=== PATIENT | female | born 1970 | race Caucasian/White ===

== ENCOUNTER 2017-01-26 22:56 | Emergency (ER) | payer OTHER ==
[~2017-01-26] VITALS: Ht 172.7 cm; Wt 57.8 kg
[~2017-01-26 22:56] MED LIST: ALBU1AER9 INH; ASPCH81X PO; ASPI-100 PO; HYDR25TA4 PO; LEVO100T7 PO; LSN5 PO; MIRT30TA3 PO
[2017-01-26 23:04] VITALS: TEMP 37.9; Ht 172.7 cm; Wt 57.8 kg
[2017-01-26] MEDS ORDERED: SODIUM CHLORIDE 0.9% 1000ML 1,000 ML IV STA (23:37)
[2017-01-27 00:15] LABS: HEMATOCRIT 32.8 % (37-47); MEAN CELL VOLUME 95.6 fL (80-100); MEAN CORPUSCULAR HEMOGLOBIN 32.1 pg (25-34); MEAN CORPUSCULAR HGB CONC 33.5 g/dl (32-36); MEAN PLATELET VOLUME 9.9 fL (7.4-10.4); PLATELET COUNT 310 K/uL (130-400); RED BLOOD COUNT 3.43 M/uL (4.2-5.4); WHITE BLOOD COUNT 11.96 K/uL (4.8-10.8)
[2017-01-27 00:40] LABS: BUN/CREATININE RATIO 12.3 (10-20); CREATININE 0.78 mg/dl (0.60-1.20); POTASSIUM 2.9 mmol/L (3.5-5.1)
[2017-01-27] MEDS ORDERED: POTASSIUM CHLORIDE 10 MEQ / 100ML WTR IV STA (00:47)
[2017-01-27] MEDS ORDERED: POTASSIUM CHLORIDE 10 MEQ TABCR PO STA (00:47)
[2017-01-27 00:52] LABS: BASO % 0.1 %; BASO ABS # 0.01 K/uL (0-0.2); COMPLETE YES; EOS % 0.1 %; IG% 0.3 %; LYMPH % 9.2 %; MONO % 10.9 %; NEUT % 79.4 %
[2017-01-27 01:07] LABS: LYME DISEASE AB IGG NEG (NEG)
[2017-01-27 01:08] LABS: LYME DISEASE AB IGM NEG (NEG)
[2017-01-27] MEDS ORDERED: CIPROFLOXACIN 500 MG TAB PO STA (01:19)
[2017-01-27 01:29] LABS: URINE APPEARANCE TURBID (CLEAR); URINE BILIRUBIN NEG (NEG); URINE COLOR YELLOW; URINE EPITHELIAL CELL AUTO >30 /lpf (0-5); URINE NITRITE POS (NEG); URINE SPECIFIC GRAVITY 1.015 (1.000-1.030); UROBILINOGEN NEG (NEG)
[2017-01-27 01:41] LABS: MANUAL MICROSCOPIC REQUIRED? NO; REVIEW REQ? NO
[2017-01-27] MEDS ORDERED: CIPR-255 PO (01:44)
[2017-01-27 02:15] VITALS: BP 106/68; PULSE 78; O2SAT 98
--- NOTE | 2017-01-27 02:27 | EMERGENCY ROOM VISIT NOTE ---
History Report prepared by Mariel: Cary Escobar Under the Supervision of: Dr. Matthew Saenz M.D. First contact with patient: 23:31 Chief Complaint: FEVER Stated Complaint: FEVER,ACHES ALL OVER,BURING WHEN URINATING History of Present Illness The patient is a 46 year old female who presents to the Emergency Room with complaints of persistent fever starting 4 days ago. Her symptoms started with dysuria 1 week ago. She also had urinary frequency. Her urinary symptoms resolved and she started having a fever 4 days ago. Her fever was as high as 102.2. She also has body aches. She has vomited several times. She has not been eating well. She denies any rash, hematuria, cough, cold symptoms, or other symptoms. She has a headache which is normal for her as she has a history of migraines. She denies any tick bites. She has a history of asthma, lupus, and hypertension. Source of History: patient Onset: 4 days ago Position: other (global) Symptom Intensity: 102.2 Quality: other (fever) Timing: other (persistent) Associated Symptoms: + vomiting, + urinary symptoms, No cough, No rash Note: Pt reports body aches. Review of Systems See HPI for pertinent positives & negatives. A total of 10 systems reviewed and were otherwise negative. Past Medical & Surgical Medical Problems: (1) Asthma (2) Depression (3) HTN (hypertension) (4) Hypothyroidism (5) Lupus (6) Migraine Surgical Problems: (1) H/O: hysterectomy Family History Diabetes mellitus Hypertension Social History Smoking Status: Never Smoker Alcohol Use: none Drug Use: none Marital Status: Housing Status: lives with family Occupation Status: employed Current/Historical Medications Scheduled Ciprofloxacin Hcl (Cipro), 500 MG PO BID Hydrochlorothiazide (Hctz), 25 MG PO DAILY Levothyroxine Sodium (Levothyroxine Sodium), 100 MG PO DAILY Lisinopril (Lisinopril), 5 MG PO DAILY Mirtazapine (Remeron), 30 MG PO HS Scheduled PRN Albuterol Sulfate (Proair Hfa), 2 PUFFS INH HS PRN for Wheezing Aspirin (Aspirin Chewable), 81 MG PO DAILY PRN for HEADACHE Qosxocj-Wzwu-Jsdbiea-Caff (Pain Relief), 2 TAB PO Q6 PRN for HEADACHE Allergies Coded Allergies: Cephalosporins (Verified Allergy, Unknown, 08/30/14) Codeine (Verified Allergy, Unknown, 08/30/14) Penicillins (Verified Allergy, Unknown, 08/30/14) Sulfa Drugs (Verified Allergy, Unknown, 08/30/14) Sulfamethoxazole (Verified Allergy, Unknown, 08/30/14) Physical Exam Vital Signs Date Time Temp Pulse Resp B/P (MAP) Pulse Ox O2 Delivery O2 Flow Rate FiO2 01/27/17 02:15 78 18 106/68 98 01/26/17 23:04 37.9 100 18 129/87 98 Room Air Physical Exam Constitutional: Vital signs reviewed. Eyes: Pupils are equal round reactive to light. Conjunctiva are noninjected. ENT: Pharynx is clear without erythema or exudate. Mucous membranes are moist. Neck supple without meningeal signs. Respiratory: Clear to auscultation bilaterally. Breath sounds are equal bilaterally. Cardiovascular: Regular rate and rhythm. No rubs or gallops. GI: Soft, nondistended and nontender. Bowel sounds are present. Musculoskeletal: No peripheral edema. No CVA tenderness. Integumentary: No cyanosis. Neurological: The patient is awake and alert. No focal deficits. Psychiatric: Normal affect. Medical Decision & Procedures Laboratory Results 01/27/17 00:00 Red Blood Count 3.43, Mean Corpuscular Volume 95.6, Mean Corpuscular Hemoglobin 32.1, Mean Corpuscular Hemoglobin Concent 33.5, Mean Platelet Volume 9.9, Neutrophils (%) (Auto) 79.4, Lymphocytes (%) (Auto) 9.2, Monocytes (%) (Auto) 10.9, Eosinophils (%) (Auto) 0.1, Basophils (%) (Auto) 0.1, Neutrophils # (Auto ) 9.50, Lymphocytes # (Auto) 1.10, Monocytes # (Auto) 1.30, Eosinophils # (Auto ) 0.01, Basophils # (Auto) 0.01 01/27/17 00:00 Test 01/27/17 00:00 01/27/17 00:03 01/27/17 01:03 White Blood Count 11.96 K/uL (4.8-10.8) Red Blood Count 3.43 M/uL (4.2-5.4) Hemoglobin 11.0 g/dL (12.0-16.0) Hematocrit 32.8 % (37-47) Mean Corpuscular Volume 95.6 fL (80-100) Mean Corpuscular Hemoglobin 32.1 pg (25-34) Mean Corpuscular Hemoglobin Concent 33.5 g/dl (32-36) Platelet Count 310 K/uL (130-400) Mean Platelet Volume 9.9 fL (7.4-10.4) Neutrophils (%) (Auto) 79.4 % Lymphocytes (%) (Auto) 9.2 % Monocytes (%) (Auto) 10.9 % Eosinophils (%) (Auto) 0.1 % Basophils (%) (Auto) 0.1 % Neutrophils # (Auto) 9.50 K/uL (1.4-6.5) Lymphocytes # (Auto) 1.10 K/uL (1.2-3.4) Monocytes # (Auto) 1.30 K/uL (0.11-0.59) Eosinophils # (Auto) 0.01 K/uL (0-0.5) Basophils # (Auto) 0.01 K/uL (0-0.2) RDW Standard Deviation 43.4 fL (36.4-46.3) RDW Coefficient of Variation 12.4 % (11.5-14.5) Immature Granulocyte % (Auto) 0.3 % Immature Granulocyte # (Auto) 0.04 K/uL (0.00-0.02) Red Blood Cell Morphology Unremarkable Anion Gap 10.0 mmol/L (3-11) Est Creatinine Clear Calc Drug Dose 82.2 ml/min Estimated GFR () 105.7 Estimated GFR (Non- 91.2 BUN/Creatinine Ratio 12.3 (10-20) Calcium Level 9.0 mg/dl (8.5-10.1) Total Bilirubin 0.6 mg/dl (0.2-1) Direct Bilirubin 0.1 mg/dl (0-0.2) Aspartate Amino Transf (AST/SGOT) 9 U/L (15-37) Alanine Aminotransferase (ALT/SGPT) 12 U/L (12-78) Alkaline Phosphatase 63 U/L (45-117) Total Protein 7.7 gm/dl (6.4-8.2) Albumin 3.2 gm/dl (3.4-5.0) Lyme Disease IgG Antibody NEG (NEG) Lyme Disease IgM Antibody NEG (NEG) Influenza Type A Antigen Neg for Influ A (NEG) Influenza Type B Antigen Neg for Influ B (NEG) Urine Color YELLOW Urine Appearance TURBID (CLEAR) Urine pH 6.0 (4.5-7.5) Urine Specific [place] 1.015 (1.000-1.030) Urine Protein 2+ (NEG) Urine Glucose (UA) NEG (NEG) Urine Ketones TRACE (NEG) Urine Occult Blood 2+ (NEG) Urine Nitrite POS (NEG) Urine Bilirubin NEG (NEG) Urine Urobilinogen NEG (NEG) Urine Leukocyte Esterase LARGE (NEG) Urine WBC (Auto) >30 /hpf (0-5) Urine RBC (Auto) 10-30 /hpf (0-4) Urine Hyaline Casts (Auto) 5-10 /lpf (0-5) Urine Epithelial Cells (Auto) >30 /lpf (0-5) Urine Bacteria (Auto) 4+ (NEG) Laboratory results as reviewed by me. Medications Administered Medications (Trade) Dose Ordered Sig/Ronnie Route Start Time Stop Time Status Last Admin Dose Admin Sodium Chloride 1,000 ml @ 999 mls/hr Q1H1M STAT IV 01/26/17 23:37 01/27/17 00:37 DC 01/26/17 23:37 999 MLS/HR Potassium Chloride (Kcl 10 Meq / Wtr) 10 meq NOW STAT IV 01/27/17 00:47 01/27/17 00:48 DC 01/27/17 01:02 10 MEQ Potassium Chloride (Klor-Con M10) 40 meq NOW STAT PO 01/27/17 00:47 01/27/17 00:48 DC 01/27/17 01:02 40 MEQ Ciprofloxacin (Cipro Tab) 500 mg NOW STAT PO 01/27/17 01:19 01/27/17 01:20 DC 01/27/17 02:09 500 MG ED Course 2333: The patient was evaluated in room B8. A complete history and physical exam was performed. 2337: NSS 1000 ml @ 999 mls/hr IV. 0047: Potassium Chloride 40 meq PO, Potassium Chloride 10 meq IV. 0117: Upon reevaluation, the patient was resting comfortably. I discussed tonight's findings with her. She verbalized agreement of the treatment plan. She was discharged home. 0119: Ciprofloxacin 500 mg PO. Medical Decision This is a 46-year-old female presents with fever, body aches and urinary symptoms. Differential diagnosis includes UTI, pyelonephritis, viral syndrome, influenza, Lyme disease. I did perform a limited focused review of portions of the patient's old chart on the electronic medical record. The patient has had no recent pertinent visits to this hospital. I did evaluate the patient as noted above. IV access was established. I did treat patient with normal saline IV. I did order and personally review the patient's urinalysis as described above. She has an obvious infection. Given her symptoms I suspect a pyelonephritis despite no CVA tenderness. I did send a urine culture and treated her with Cipro. I did order and review the patient' s blood work as noted in the electronic medical record. She has hypokalemia and was given IV KCl as well as oral supplementation. I did discuss the test results with the patient. She was advised to follow closely with her doctor. She was discharged with a prescription for Cipro for 10 days. Medication Reconcilliation Current Medication List: was personally reviewed by me Blood Pressure Screening Patient's blood pressure: Elevated blood pressure Blood pressure disposition: Referred to PCP Impression Primary Impression: Pyelonephritis Additional Impression: Hypokalemia Scribe Attestation The scribe's documentation has been prepared under my direct and personally reviewed by me in its entirety. I confirm that the note above accurately reflects all work, treatment, procedures, and medical decision making performed by me. Departure Information Dispostion Home / Self-Care Prescriptions Ciprofloxacin Hcl (CIPRO) 500 Mg Tab 500 MG PO BID, #19 TAB Prov: Matthew Saenz M.D. 01/27/17 Referrals Vimal Stewart, D.OAnju (PCP) Forms HOME CARE DOCUMENTATION FORM, IMPORTANT VISIT INFORMATION Patient Instructions Hypokalemia Dc, My [facility], Pyelonephritis Dc Additional Instructions You have been examined and treated today on an emergency basis only. This is not a substitute for, or an effort to provide, complete comprehensive medical care. It is impossible to recognize and treat all injuries or illnesses in a single emergency department visit. It is therefore important that you follow up closely with your physician early next week. Call as soon as possible for an appointment. Return for worsening symptoms or if you develop abdominal or back pain, persistent vomiting, or any other concerning symptoms. Problem Qualifiers
--- NOTE | 2017-01-29 14:42 | Pharmacy Progress Note ---
ED Pharmacist Culture FollowUp Date of Service: Jan 29, 2017. Patient was sent home with a prescription for ciprofloxacin 500mg BID X 10 days , which should cover the E. Coli growing from the patient's urine culture.
== END 2017-01-27 02:16 | disposition home or self-care (01) ==
LOC: C.EDB 22:56
DX: N12 Tubulo-interstitial nephritis, not specified as acute or chronic (principal); E87.6 Hypokalemia; J45.909 Unspecified asthma, uncomplicated; I10 Essential (primary) hypertension; M32.9 Systemic lupus erythematosus, unspecified; F32.9 Major depressive disorder, single episode, unspecified; E03.9 Hypothyroidism, unspecified; Z90.710 Acquired absence of both cervix and uterus; Z83.3 Family history of diabetes mellitus; Z82.49 Family history of ischemic heart disease and other diseases of the circulatory system; Z79.899 Other long term (current) drug therapy

== ENCOUNTER 2018-07-16 14:21 | Observation (INO) ==
[2018-07-16] MEDS ORDERED: ASPIRIN CHEW 324 MG PO STA (16:08)
--- NOTE | 2018-07-16 16:27 | Emergency Department Note ---
Entered by Vu Castillo acting as a scribe for History of Present Illness General Chief complaint: Shortness of Breath/Dyspnea Stated complaint: SHORTNESS OF BREATH,DULL PAIN RT SIDE OF CHEST Time Seen by Provider: 07/16/18 15:57 Source: patient and family History of Present Illness Provider complaint: Shortness of breath Onset (ago): day(s) 4 Location: chest Maximum Pain Intensity: 6 Quality: + other (heaviness) Exacerbated By: + movement Associated symptoms: + denies other symptoms (abd pain, swelling in legs, bleeding in stool, burping/reflux, and calf pain), + chest pain (right sided) and + cough; no fever/chills The patient is a 47 year old female who presents to the Emergency Room with complaints of shortness of breath that began Sunday. The patient notes she was at work prior to arrival and noticed her shortness of breath began to worsen as the day went on forcing her to stop at time to catch her breath. She describes the shortness of breath as a heaviness and notes it has been constant for the past 4 days. The shortness of breath began to worsen today which prompted her to come to the Emergency Room. She rates her overall discomfort as a 6/10. She notes she has the heaviness in her chest currently. The patient adds that she had an EKG done at work and presents to the ED with it. The patient adds that she has a history of asthma, but notes that she usually does not get heaviness. The patient also complains of a cough, right sided chest pain. The patient denies fevers, abdominal pain, bleeding in stool, swelling in legs, burping/ reflux, any recent travel, and calf pain. The patient denies a history of heart disease and clotting disorders. She adds that she has hypertension and Lupus. Home Medications Home Medications Medication Instructions Recorded Confirmed Type albuterol sulfate [ProAir HFA] 2 puff INHALATION DIRECTED PRN 07/16/18 History aspirin 81 mg PO DAILY 07/16/18 07/16/18 History ferrous sulfate 325 mg PO DAILY 07/16/18 07/16/18 History fexofenadine [Debra Allergy] 180 mg PO DAILY 07/16/18 07/16/18 History hydrochlorothiazide 12.5 mg PO DAILY 07/16/18 07/16/18 History levothyroxine 88 mcg PO QAM 07/16/18 07/16/18 History lisinopril 10 mg PO DAILY 07/16/18 07/16/18 History mirtazapine 30 mg PO HS 07/16/18 07/16/18 History potassium chloride 10 meq PO DAILY 07/16/18 07/16/18 History Allergies Allergy/AdvReac Type Severity Reaction Status Date / Time cephalexin [From Keflex] Allergy Unknown Unknown Verified 07/16/18 17:29 Cephalosporins Allergy Unknown Unknown Verified 07/16/18 17:29 codeine Allergy Unknown Unknown Verified 07/16/18 17:29 Penicillins Allergy Unknown Unknown Verified 07/16/18 17:29 Sulfa (Sulfonamide Allergy Unknown Unknown Verified 07/16/18 17:29 Antibiotics) sulfamethoxazole Allergy Unknown Unknown Verified 07/16/18 17:29 Past Med/Surg History Medical History Hypertension Lupus Social History Current Living Situation: Spouse Feels Safe at Home: Yes Safety Concerns: Feels Safe At This Time Smoking Status: Never smoker Hx Alcohol Use: Yes Hx Substance Use: No Beliefs That Will Affect Care: None Preferred Language: Jordanian Communication Ability: Effective Research Associate Quality Control Qc Required: No Review of Systems See HPI for pertinent positives & negatives. and A total of 10 systems reviewed and were otherwise negative Physical Exam Vital Signs Vital Signs - 24 hr 07/16/18 14:33 07/16/18 16:18 07/16/18 16:21 Temperature 36.9 C Temperature Source Oral Sepsis Recent Fever Within 48 Hours No Sepsis New/Unexplained Change in Mental Status No Sepsis Action Taken by Nursing No Action Required Pulse Rate 81 69 Pulse Rate [Left Radial] Pulse Rate from SpO2 Sensor 70 Pulse Rhythm [Left Radial] Pulse Strength [Left Radial] Respiratory Rate 18 16 Respiratory Effort / Characteristics Non-Labored Spontaneous Respiratory Depth Normal Respiratory Pattern Blood Pressure 147/93 H 137/94 Blood Pressure [Left Arm] Blood Pressure Mean 111 108 Blood Pressure Mean [Left Arm] Blood Pressure Position Sitting Blood Pressure Position [Left Arm] Pulse Oximetry 98 100 97 Oxygen Delivery Method Room Air Room Air Oxygen Flow Rate 97 07/16/18 16:32 07/16/18 16:34 07/16/18 16:40 Temperature Temperature Source Sepsis Recent Fever Within 48 Hours Sepsis New/Unexplained Change in Mental Status Sepsis Action Taken by Nursing Pulse Rate 68 66 70 Pulse Rate [Left Radial] Pulse Rate from SpO2 Sensor 68 68 70 Pulse Rhythm [Left Radial] Pulse Strength [Left Radial] Respiratory Rate 18 16 16 Respiratory Effort / Characteristics Respiratory Depth Respiratory Pattern Blood Pressure 139/100 Blood Pressure [Left Arm] Blood Pressure Mean 113 Blood Pressure Mean [Left Arm] Blood Pressure Position Blood Pressure Position [Left Arm] Pulse Oximetry 100 98 97 Oxygen Delivery Method Oxygen Flow Rate 07/16/18 16:50 07/16/18 17:00 07/16/18 17:01 Temperature Temperature Source Sepsis Recent Fever Within 48 Hours Sepsis New/Unexplained Change in Mental Status Sepsis Action Taken by Nursing Pulse Rate 70 68 69 Pulse Rate [Left Radial] Pulse Rate from SpO2 Sensor 70 68 69 Pulse Rhythm [Left Radial] Pulse Strength [Left Radial] Respiratory Rate 16 16 15 Respiratory Effort / Characteristics Respiratory Depth Respiratory Pattern Blood Pressure 124/94 Blood Pressure [Left Arm] Blood Pressure Mean 104 Blood Pressure Mean [Left Arm] Blood Pressure Position Blood Pressure Position [Left Arm] Pulse Oximetry 99 98 98 Oxygen Delivery Method Oxygen Flow Rate 07/16/18 17:10 07/16/18 17:20 07/16/18 17:30 Temperature Temperature Source Sepsis Recent Fever Within 48 Hours Sepsis New/Unexplained Change in Mental Status Sepsis Action Taken by Nursing Pulse Rate 73 66 67 Pulse Rate [Left Radial] Pulse Rate from SpO2 Sensor 72 67 68 Pulse Rhythm [Left Radial] Pulse Strength [Left Radial] Respiratory Rate 16 15 16 Respiratory Effort / Characteristics Respiratory Depth Respiratory Pattern Blood Pressure 123/87 Blood Pressure [Left Arm] Blood Pressure Mean 99 Blood Pressure Mean [Left Arm] Blood Pressure Position Blood Pressure Position [Left Arm] Pulse Oximetry 97 99 96 Oxygen Delivery Method Oxygen Flow Rate 07/16/18 17:31 07/16/18 17:40 07/16/18 17:50 Temperature Temperature Source Sepsis Recent Fever Within 48 Hours Sepsis New/Unexplained Change in Mental Status Sepsis Action Taken by Nursing Pulse Rate 69 68 68 Pulse Rate [Left Radial] Pulse Rate from SpO2 Sensor 69 66 Pulse Rhythm [Left Radial] Pulse Strength [Left Radial] Respiratory Rate 17 17 16 Respiratory Effort / Characteristics Respiratory Depth Respiratory Pattern Blood Pressure Blood Pressure [Left Arm] Blood Pressure Mean Blood Pressure Mean [Left Arm] Blood Pressure Position Blood Pressure Position [Left Arm] Pulse Oximetry 98 91 Oxygen Delivery Method Oxygen Flow Rate 07/16/18 18:00 07/16/18 18:01 07/16/18 18:10 Temperature Temperature Source Sepsis Recent Fever Within 48 Hours Sepsis New/Unexplained Change in Mental Status Sepsis Action Taken by Nursing Pulse Rate 65 70 68 Pulse Rate [Left Radial] Pulse Rate from SpO2 Sensor 65 71 69 Pulse Rhythm [Left Radial] Pulse Strength [Left Radial] Respiratory Rate 23 17 18 Respiratory Effort / Characteristics Respiratory Depth Respiratory Pattern Blood Pressure 113/87 Blood Pressure [Left Arm] Blood Pressure Mean 95 Blood Pressure Mean [Left Arm] Blood Pressure Position Blood Pressure Position [Left Arm] Pulse Oximetry 98 98 97 Oxygen Delivery Method Oxygen Flow Rate 07/16/18 18:20 07/16/18 18:30 07/16/18 18:31 Temperature Temperature Source Sepsis Recent Fever Within 48 Hours Sepsis New/Unexplained Change in Mental Status Sepsis Action Taken by Nursing Pulse Rate 67 67 69 Pulse Rate [Left Radial] Pulse Rate from SpO2 Sensor 67 69 Pulse Rhythm [Left Radial] Pulse Strength [Left Radial] Respiratory Rate 12 17 13 Respiratory Effort / Characteristics Respiratory Depth Respiratory Pattern Blood Pressure 122/83 Blood Pressure [Left Arm] Blood Pressure Mean 96 Blood Pressure Mean [Left Arm] Blood Pressure Position Blood Pressure Position [Left Arm] Pulse Oximetry 98 98 Oxygen Delivery Method Oxygen Flow Rate 07/16/18 18:40 07/16/18 18:50 07/16/18 19:00 Temperature Temperature Source Sepsis Recent Fever Within 48 Hours Sepsis New/Unexplained Change in Mental Status Sepsis Action Taken by Nursing Pulse Rate 68 66 66 Pulse Rate [Left Radial] Pulse Rate from SpO2 Sensor 68 66 66 Pulse Rhythm [Left Radial] Pulse Strength [Left Radial] Respiratory Rate 20 15 19 Respiratory Effort / Characteristics Respiratory Depth Respiratory Pattern Blood Pressure 119/81 Blood Pressure [Left Arm] Blood Pressure Mean 93 Blood Pressure Mean [Left Arm] Blood Pressure Position Blood Pressure Position [Left Arm] Pulse Oximetry 96 98 95 Oxygen Delivery Method Oxygen Flow Rate 07/16/18 19:01 07/16/18 19:10 07/16/18 19:20 Temperature Temperature Source Sepsis Recent Fever Within 48 Hours Sepsis New/Unexplained Change in Mental Status Sepsis Action Taken by Nursing Pulse Rate 67 65 70 Pulse Rate [Left Radial] Pulse Rate from SpO2 Sensor 64 64 69 Pulse Rhythm [Left Radial] Pulse Strength [Left Radial] Respiratory Rate 15 17 19 Respiratory Effort / Characteristics Respiratory Depth Respiratory Pattern Blood Pressure Blood Pressure [Left Arm] Blood Pressure Mean Blood Pressure Mean [Left Arm] Blood Pressure Position Blood Pressure Position [Left Arm] Pulse Oximetry 97 100 95 Oxygen Delivery Method Oxygen Flow Rate 07/16/18 19:30 07/16/18 19:31 07/16/18 19:40 Temperature Temperature Source Sepsis Recent Fever Within 48 Hours Sepsis New/Unexplained Change in Mental Status Sepsis Action Taken by Nursing Pulse Rate 62 62 72 Pulse Rate [Left Radial] Pulse Rate from SpO2 Sensor 62 62 69 Pulse Rhythm [Left Radial] Pulse Strength [Left Radial] Respiratory Rate 13 16 16 Respiratory Effort / Characteristics Respiratory Depth Respiratory Pattern Blood Pressure 139/98 Blood Pressure [Left Arm] Blood Pressure Mean 111 Blood Pressure Mean [Left Arm] Blood Pressure Position Blood Pressure Position [Left Arm] Pulse Oximetry 98 98 98 Oxygen Delivery Method Oxygen Flow Rate 07/16/18 19:50 07/16/18 20:00 07/16/18 20:01 Temperature Temperature Source Sepsis Recent Fever Within 48 Hours Sepsis New/Unexplained Change in Mental Status Sepsis Action Taken by Nursing Pulse Rate 67 68 67 Pulse Rate [Left Radial] Pulse Rate from SpO2 Sensor 67 67 68 Pulse Rhythm [Left Radial] Pulse Strength [Left Radial] Respiratory Rate 14 17 18 Respiratory Effort / Characteristics Respiratory Depth Respiratory Pattern Blood Pressure 156/126 H 149/90 H Blood Pressure [Left Arm] Blood Pressure Mean 136 109 Blood Pressure Mean [Left Arm] Blood Pressure Position Blood Pressure Position [Left Arm] Pulse Oximetry 97 97 98 Oxygen Delivery Method Oxygen Flow Rate 07/16/18 20:02 07/16/18 20:10 07/16/18 20:20 Temperature Temperature Source Sepsis Recent Fever Within 48 Hours Sepsis New/Unexplained Change in Mental Status Sepsis Action Taken by Nursing Pulse Rate 65 73 66 Pulse Rate [Left Radial] Pulse Rate from SpO2 Sensor 65 72 68 Pulse Rhythm [Left Radial] Pulse Strength [Left Radial] Respiratory Rate 20 17 18 Respiratory Effort / Characteristics Respiratory Depth Respiratory Pattern Blood Pressure Blood Pressure [Left Arm] Blood Pressure Mean Blood Pressure Mean [Left Arm] Blood Pressure Position Blood Pressure Position [Left Arm] Pulse Oximetry 97 97 97 Oxygen Delivery Method Oxygen Flow Rate 07/16/18 20:30 07/16/18 20:31 07/16/18 20:40 Temperature Temperature Source Sepsis Recent Fever Within 48 Hours Sepsis New/Unexplained Change in Mental Status Sepsis Action Taken by Nursing Pulse Rate 69 66 64 Pulse Rate [Left Radial] Pulse Rate from SpO2 Sensor 70 67 66 Pulse Rhythm [Left Radial] Pulse Strength [Left Radial] Respiratory Rate 14 16 14 Respiratory Effort / Characteristics Respiratory Depth Respiratory Pattern Blood Pressure 118/81 Blood Pressure [Left Arm] Blood Pressure Mean 93 Blood Pressure Mean [Left Arm] Blood Pressure Position Blood Pressure Position [Left Arm] Pulse Oximetry 97 96 97 Oxygen Delivery Method Oxygen Flow Rate 07/16/18 21:20 07/16/18 23:08 07/16/18 23:20 Temperature 36.6 C 36.6 C Temperature Source Oral Oral Sepsis Recent Fever Within 48 Hours Sepsis New/Unexplained Change in Mental Status Sepsis Action Taken by Nursing Pulse Rate 80 Pulse Rate [Left Radial] 74 72 Pulse Rate from SpO2 Sensor Pulse Rhythm [Left Radial] Regular Pulse Strength [Left Radial] Normal Respiratory Rate 18 20 Respiratory Effort / Characteristics Non-Labored Spontaneous Respiratory Depth Normal Respiratory Pattern Regular Blood Pressure Blood Pressure [Left Arm] 142/94 H 122/83 Blood Pressure Mean Blood Pressure Mean [Left Arm] 110 96 Blood Pressure Position Blood Pressure Position [Left Arm] Sitting Left Lateral Pulse Oximetry 96 96 Oxygen Delivery Method Room Air Room Air Oxygen Flow Rate General: Non-ill appearing middle-aged female in no acute distress. HEENT: Normal cephalic atraumatic. Pupils are equal round and reactive to light. Extraocular movements are intact. Oropharynx is pink with moist mucous membranes. No swelling of the mouth lips or tongue. Neck: Supple with a midline trachea. No meningeal signs or stiffness, no JVD or bruits. No Stridor. Chest: Clear to auscultation bilaterally. No wheezes or rhonchi. No increased work of breathing. Heart: regular rate and rhythm. Abdomen: Soft nontender, nondistended without rebound guarding or rigidity. Extremities: No cyanosis clubbing or edema. No calf tenderness or assymetry Spine/Back. Non tender to palpation. No CVA tenderness Skin: Good turgor without rashes. Neurologic exam: Cranial nerves two through 12 are intact. Motor and sensation are intact and symmetrical throughout. Course 160: Past medical records reviewed. The patient was evaluated in room B05, and a complete history and physical examination were performed. 1748: I updated the patient. She is doing well and I ordered another EKG and Trop. 1939: I reviewed the patient's case with Dr. Rome Hospitalist. He will evaluate the patient for further management. Consultations Consultation #1: [id number]: I reviewed the patient's case with Dr. Funes Hospitalist. He will evaluate the patient for further management. Time: 19:40 Administered Medications Potassium Chloride/Sodium Chloride (Normal Saline W/20 Meq Kcl) 20 meq in 1, 000 mls @ 50 mls/hr IV .Q20H LAURITA Stop: 08/16/18 00:00 Last Admin: 07/16/18 23:49 Dose: 50 mls/hr Mirtazapine (Remeron) 30 mg PO HS LAURITA Stop: 08/15/18 21:13 Last Admin: 07/16/18 21:58 Dose: 30 mg Discontinued Medications Aspirin (Aspirin) 324 mg PO NOW STA Stop: 07/16/18 16:09 Last Admin: 07/16/18 16:19 Dose: 324 mg Medical Decision Making Differential Diagnosis Differential Diagnosis includes: acute coronary syndrome, arrhythmia, PE, GERD, Electrolyte or metabolic abnormality Medical Records Attestation: I reviewed the patient's medical records. Home Medications Current Medication List: was personally reviewed by me Laboratory Data Attestation: I reviewed the patient's lab results. Result diagrams: 07/16/18 16:32 07/16/18 16:32 Lab Results 07/16/18 07/16/18 07/16/18 Range/Units 16:32 16:32 16:32 WBC 6.35 (4.8-10.8) K/uL RBC 3.85 L (4.2-5.4) M/uL Hgb 12.4 (12.0-16.0) g/dL Hct 36.6 L (37-47) % MCV 95.1 (80-100) fL MCH 32.2 (25-34) pg MCHC 33.9 (32-36) g/dL RDW Std Deviation 42.9 (36.4-46.3) fL RDW Coeff of Jordi 12.4 (11.5-14.5) % Plt Count 317 (130-400) K/uL MPV 9.9 (7.4-10.4) fL Immature Gran % (Auto) 0.2 % Neut % (Auto) 68.4 % Lymph % (Auto) 22.5 % [place] % (Auto) 7.1 % Eos % (Auto) 1.6 % Baso % (Auto) 0.2 % Immature Gran # (Auto) 0.01 (0.00-0.02) K/uL Neut # (Auto) 4.35 (1.4-6.5) K/uL Lymph # (Auto) 1.43 (1.2-3.4) K/uL [place] # (Auto) 0.45 (0.11-0.59) K/uL Eos # (Auto) 0.10 (0-0.5) K/uL Baso # (Auto) 0.01 (0-0.2) K/uL APTT (21.0-31.0) Seconds PTT Ratio D-Dimer < 190 (0-500) ug/L FEU Sodium 137 (136-145) mmol/L Potassium 3.9 (3.5-5.1) mmol/L Chloride 104 (98-107) mmol/L Carbon Dioxide 27 (21-32) mmol/L Anion Gap 6.0 (3-11) BUN 18 (7-18) mg/dl Creatinine 0.76 (0.6-1.2) mg/dl Est Cr Clr Drug Dosing 91.0 ml/min Est GFR ( Amer) 108.3 Est GFR (Non-Af Amer) 93.4 BUN/Creatinine Ratio 23.1 H (10-20) Glucose 95 (70-99) mg/dl Calcium 9.6 (8.5-10.1) mg/dl Magnesium (1.8-2.4) mg/dl Total Bilirubin 0.2 (0.2-1) mg/dl AST 19 (15-37) U/L ALT 20 (12-78) U/L Alkaline Phosphatase 66 (45-117) U/L POC Troponin I (0-0.045) ng/ml Total Protein 8.0 (6.4-8.2) gm/dl Albumin 4.0 (3.4-5.0) gm/dl Globulin 4.0 (2.5-4.0) gm/dl Albumin/Globulin Ratio 1.0 (0.9-2) Lipase 209 (73-393) U/L 07/16/18 07/16/18 07/16/18 Range/Units 16:32 16:32 16:40 WBC (4.8-10.8) K/uL RBC (4.2-5.4) M/uL Hgb (12.0-16.0) g/dL Hct (37-47) % MCV (80-100) fL MCH (25-34) pg MCHC (32-36) g/dL RDW Std Deviation (36.4-46.3) fL RDW Coeff of Jordi (11.5-14.5) % Plt Count (130-400) K/uL MPV (7.4-10.4) fL Immature Gran % (Auto) % Neut % (Auto) % Lymph % (Auto) % [place] % (Auto) % Eos % (Auto) % Baso % (Auto) % Immature Gran # (Auto) (0.00-0.02) K/uL Neut # (Auto) (1.4-6.5) K/uL Lymph # (Auto) (1.2-3.4) K/uL [place] # (Auto) (0.11-0.59) K/uL Eos # (Auto) (0-0.5) K/uL Baso # (Auto) (0-0.2) K/uL APTT 25.4 (21.0-31.0) Seconds PTT Ratio 0.9 D-Dimer (0-500) ug/L FEU Sodium (136-145) mmol/L Potassium (3.5-5.1) mmol/L Chloride (98-107) mmol/L Carbon Dioxide (21-32) mmol/L Anion Gap (3-11) BUN (7-18) mg/dl Creatinine (0.6-1.2) mg/dl Est Cr Clr Drug Dosing ml/min Est GFR ( Amer) Est GFR (Non-Af Amer) BUN/Creatinine Ratio (10-20) Glucose (70-99) mg/dl Calcium (8.5-10.1) mg/dl Magnesium 2.2 (1.8-2.4) mg/dl Total Bilirubin (0.2-1) mg/dl AST (15-37) U/L ALT (12-78) U/L Alkaline Phosphatase (45-117) U/L POC Troponin I < 0.03 (0-0.045) ng/ml Total Protein (6.4-8.2) gm/dl Albumin (3.4-5.0) gm/dl Globulin (2.5-4.0) gm/dl Albumin/Globulin Ratio (0.9-2) Lipase (73-393) U/L 07/16/18 Range/Units 18:26 WBC (4.8-10.8) K/uL RBC (4.2-5.4) M/uL Hgb (12.0-16.0) g/dL Hct (37-47) % MCV (80-100) fL MCH (25-34) pg MCHC (32-36) g/dL RDW Std Deviation (36.4-46.3) fL RDW Coeff of Jordi (11.5-14.5) % Plt Count (130-400) K/uL MPV (7.4-10.4) fL Immature Gran % (Auto) % Neut % (Auto) % Lymph % (Auto) % [place] % (Auto) % Eos % (Auto) % Baso % (Auto) % Immature Gran # (Auto) (0.00-0.02) K/uL Neut # (Auto) (1.4-6.5) K/uL Lymph # (Auto) (1.2-3.4) K/uL [place] # (Auto) (0.11-0.59) K/uL Eos # (Auto) (0-0.5) K/uL Baso # (Auto) (0-0.2) K/uL APTT (21.0-31.0) Seconds PTT Ratio D-Dimer (0-500) ug/L FEU Sodium (136-145) mmol/L Potassium (3.5-5.1) mmol/L Chloride (98-107) mmol/L Carbon Dioxide (21-32) mmol/L Anion Gap (3-11) BUN (7-18) mg/dl Creatinine (0.6-1.2) mg/dl Est Cr Clr Drug Dosing ml/min Est GFR ( Amer) Est GFR (Non-Af Amer) BUN/Creatinine Ratio (10-20) Glucose (70-99) mg/dl Calcium (8.5-10.1) mg/dl Magnesium (1.8-2.4) mg/dl Total Bilirubin (0.2-1) mg/dl AST (15-37) U/L ALT (12-78) U/L Alkaline Phosphatase (45-117) U/L POC Troponin I < 0.03 (0-0.045) ng/ml Total Protein (6.4-8.2) gm/dl Albumin (3.4-5.0) gm/dl Globulin (2.5-4.0) gm/dl Albumin/Globulin Ratio (0.9-2) Lipase (73-393) U/L Imaging Data Radiologist's Impression: Radiology results as stated below per my review and the radiologist's interpretation: XR chest 1V portable CLINICAL HISTORY: Atypical chest pain COMPARISON STUDY: No previous studies for comparison. FINDINGS: The heart is at the upper limits of normal in size. There is no focal pulmonary consolidation. There is no failure. There are no pleural effusions.[ IMPRESSION: No active disease in the chest. Electronically signed by: Vipin Hickey M.D. 07/16/2018 4:27 PM ECG Data Indication: SOB/dyspnea Rate (beats per minute): 69 Rhythm: normal sinus Findings: + other (nonspecific ST changes ); no PAC, no PVC and no ectopy Comparison ECG Date: from (12/07/13) Change: the following changes noted (Anterior T waves have improved) Additional Comments: EKG done prior to arrival (at work): Nonspecific ST and T wave changes Repeat EKG: Normal sinus rate of 69 bpm, nonspecific ST abnormality with repolarization, no ischemic changes Blood Pressure Blood Pressure Findings: Elevated blood pressure Blood Pressure Disposition: further management by hospitalist BHARGAVI Narrative This patient comes in as described above. She was placed in room B5. She complains of shortness of breath. she noticed the last day or so. Over the weekend, she has been having some chest heaviness which has been consistent and present the whole time and has never gone away. She is comfortable at present and looks well. She has a normal exam. IV access established. she takes a baby aspirin a day and was given adult 324 mg here. Chest x-ray, EKG, and multiple blood testing was obtained including: cardiac biomarkers and d-dimer. She was reassessed frequently. Her EKGs are unchanged between the first and second however they do have some nonspecific ST/T wave abnormalities which were also present on previous EKG. Troponin x2 was negative. D-dimer is within normal limits and a low pretest probability study makes PE highly unlikely. Chest x-ray was unremarkable. She has nothing to suggest infection or sepsis. She is not anemic. She has no acute electrolyte or metabolic abnormalities. Her workup thus far is unremarkable I am concerned that her symptoms are exertional and I do think she needs to be observed/admitted for further cardiac workup to rule out an acute coronary syndrome. She has never had a extensive cardiac workup done before she tells me. I did consult the hospitalist to see her in the ER for these measures. Impression & Plan Chest pain, precordial, SOB (shortness of breath) Discharge Plan Visit Data *Final* Discharge Date/Time: 07/16/18 20:52 Chief Complaint: Shortness of Breath/Dyspnea Stated Complaint: SHORTNESS OF BREATH,DULL PAIN RT SIDE OF CHEST ED Provider: Paul Turner Discharge Problem: Chest pain, precordial, SOB (shortness of breath) Patient Disposition: Admitted As Inpatient Discharge Instructions Interventions: ED Discharge Assessment Last Done: 07/16/18 20:52 The scribe's documentation has been prepared under my direction and personally reviewed by me in its entirety. I confirm that the note above accurately reflects all work, treatment, procedures, and medical decision making performed by me.
[2018-07-16 16:48] LABS: Basophils # (auto) 0.01 K/uL (0-0.2); Basophils % (auto) 0.2 %; Eosinophils % (auto) 1.6 %; Hematocrit (blood only) 36.6 % (37-47); Hemoglobin 12.4 g/dL (12.0-16.0); Immature Granulocytes # (auto) 0.01 K/uL (0.00-0.02); Immature Granulocytes % (auto) 0.2 %; Lymphocytes # (auto) 1.43 K/uL (1.2-3.4); Lymphocytes % (auto) 22.5 %; Mean Corpuscular Hgb Conc 33.9 g/dL (32-36); Mean Corpuscular Volume 95.1 fL (80-100); Mean Platelet Volume 9.9 fL (7.4-10.4); Monocytes # (auto) 0.45 K/uL (0.11-0.59); Monocytes % (auto) 7.1 %; Neutrophils # (auto) 4.35 K/uL (1.4-6.5); Neutrophils % (auto) 68.4 %; Platelet Count 317 K/uL (130-400); RDW Coefficient of Variation 12.4 % (11.5-14.5); RDW Standard Deviation 42.9 fL (36.4-46.3); Red Blood Count 3.85 M/uL (4.2-5.4); White Blood Count 6.35 K/uL (4.8-10.8)
[2018-07-16 17:07] LABS: D Dimer < 190 ug/L FEU (0-500)
[2018-07-16 17:10] LABS: BUN Creatinine Ratio 23.1 (10-20); Calcium 9.6 mg/dl (8.5-10.1); Est GFR (African American) 108.3; Est GFR (Non-African American) 93.4; Potassium 3.9 mmol/L (3.5-5.1)
[2018-07-16 17:13] LABS: Bilirubin,Total 0.2 mg/dl (0.2-1)
[2018-07-16 19:58] LABS: Partial Thromboplastin Ratio 0.9; Partial Thromboplastin Time 25.4 Seconds (21.0-31.0)
--- NOTE | 2018-07-16 20:07 | History & Physical Report ---
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 if a.m. troponin negative DVT prophylaxis. Lovenox subcu Full code History of Present Illness Chief Complaint: Chest pain Primary Care Provider: Vimal Stewart History obtained from patient, family, and records. Medical history significant for hypertension, SLE, chronic anemia baseline hemoglobin of 11, mood disorder, asthma. 4 days history of substernal heaviness nonradiating usually related to exertion, relieved by rest. Some shortness of breath, no cough symptoms., No weight gain. Patient had relief of chest pain at the ER after be given aspirin. 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 Allergies Allergy/AdvReac Type Severity Reaction Status Date / Time cephalexin [From Keflex] Allergy Unknown Unknown Verified 07/16/18 17:29 Cephalosporins Allergy Unknown Unknown Verified 07/16/18 17:29 codeine Allergy Unknown Unknown Verified 07/16/18 17:29 Penicillins Allergy Unknown Unknown Verified 07/16/18 17:29 Sulfa (Sulfonamide Allergy Unknown Unknown Verified 07/16/18 17:29 Antibiotics) sulfamethoxazole Allergy Unknown Unknown Verified 07/16/18 17:29 Home Medications Home Medications Medication Instructions Recorded Confirmed Type albuterol sulfate [ProAir HFA] 2 puff INHALATION DIRECTED PRN 07/16/18 07/16/18 History aspirin 81 mg PO DAILY 07/16/18 07/16/18 History ferrous sulfate 325 mg PO DAILY 07/16/18 07/16/18 History fexofenadine [Debra Allergy] 180 mg PO DAILY 07/16/18 07/16/18 History hydrochlorothiazide 12.5 mg PO DAILY 07/16/18 07/16/18 History levothyroxine 88 mcg PO QAM 07/16/18 07/16/18 History lisinopril 10 mg PO DAILY 07/16/18 07/16/18 History mirtazapine 30 mg PO HS 07/16/18 07/16/18 History potassium chloride 10 meq PO DAILY 07/16/18 07/16/18 History Past Med/Surg History Medical History Hypertension Lupus Social History Feels Safe at Home: Yes Smoking Status: Never smoker Preferred Language: Panamanian Review of Systems As per HPI, all 10 systems reviewed, all other ROS negative Physical Exam Vital Signs (Past 24 Hours): Last Vital Signs Temp 36.9 C 07/16/18 14:33 Pulse 67 07/16/18 19:50 Resp 14 07/16/18 19:50 BP 139/98 07/16/18 19:30 Pulse Ox 97 07/16/18 19:50 Physical Exam: GENERAL: Comfortable, slightly anxious, no respiratory distress SKIN: Pallor, warm HEENT: Pale palpebral conjunctivae, no ptosis, dry buccal mucosa NECK : Supple, no tenderness CHEST : CTA, no tenderness HEART : RRR, no obvious murmurs ABDOMEN: Some distention, nontender EXTREMITIES : No LE swelling/tenderness, no other conspicuous deformities noted NEUROLOGIC : Coherent, no facial asymmetry, no other gross focality Results & Data Laboratory Results Laboratory Results WBC 6.35 K/uL (4.8-10.8) 07/16/18 16:32 RBC 3.85 M/uL (4.2-5.4) L 07/16/18 16:32 Hgb 12.4 g/dL (12.0-16.0) 07/16/18 16:32 Hct 36.6 % (37-47) L 07/16/18 16:32 MCV 95.1 fL (80-100) 07/16/18 16:32 MCH 32.2 pg (25-34) 07/16/18 16:32 MCHC 33.9 g/dL (32-36) 07/16/18 16:32 RDW Std Deviation 42.9 fL (36.4-46.3) 07/16/18 16:32 RDW Coeff of Jordi 12.4 % (11.5-14.5) 07/16/18 16:32 Plt Count 317 K/uL (130-400) 07/16/18 16:32 MPV 9.9 fL (7.4-10.4) 07/16/18 16:32 Immature Gran % (Auto) 0.2 % 07/16/18 16:32 Neut % (Auto) 68.4 % 07/16/18 16:32 Lymph % (Auto) 22.5 % 07/16/18 16:32 Floyd % (Auto) 7.1 % 07/16/18 16:32 Eos % (Auto) 1.6 % 07/16/18 16:32 Baso % (Auto) 0.2 % 07/16/18 16:32 Immature Gran # (Auto) 0.01 K/uL (0.00-0.02) 07/16/18 16:32 Neut # (Auto) 4.35 K/uL (1.4-6.5) 07/16/18 16:32 Lymph # (Auto) 1.43 K/uL (1.2-3.4) 07/16/18 16:32 Floyd # (Auto) 0.45 K/uL (0.11-0.59) 07/16/18 16:32 Eos # (Auto) 0.10 K/uL (0-0.5) 07/16/18 16:32 Baso # (Auto) 0.01 K/uL (0-0.2) 07/16/18 16:32 APTT 25.4 Seconds (21.0-31.0) 07/16/18 16:32 PTT Ratio 0.9 07/16/18 16:32 D-Dimer < 190 ug/L FEU (0-500) 07/16/18 16:32 Sodium 137 mmol/L (136-145) 07/16/18 16:32 Potassium 3.9 mmol/L (3.5-5.1) 07/16/18 16:32 Chloride 104 mmol/L (98-107) 07/16/18 16:32 Carbon Dioxide 27 mmol/L (21-32) 07/16/18 16:32 Anion Gap 6.0 (3-11) 07/16/18 16:32 BUN 18 mg/dl (7-18) 07/16/18 16:32 Creatinine 0.76 mg/dl (0.6-1.2) 07/16/18 16:32 Est Cr Clr Drug Dosing 91.0 ml/min 07/16/18 16:32 Est GFR ( Amer) 108.3 07/16/18 16:32 Est GFR (Non-Af Amer) 93.4 07/16/18 16:32 BUN/Creatinine Ratio 23.1 (10-20) H 07/16/18 16:32 Glucose 95 mg/dl (70-99) 07/16/18 16:32 Calcium 9.6 mg/dl (8.5-10.1) 07/16/18 16:32 Magnesium 2.2 mg/dl (1.8-2.4) 07/16/18 16:32 Total Bilirubin 0.2 mg/dl (0.2-1) 07/16/18 16:32 AST 19 U/L (15-37) 07/16/18 16:32 ALT 20 U/L (12-78) 07/16/18 16:32 Alkaline Phosphatase 66 U/L (45-117) 07/16/18 16:32 POC Troponin I < 0.03 ng/ml (0-0.045) 07/16/18 18:26 Total Protein 8.0 gm/dl (6.4-8.2) 07/16/18 16:32 Albumin 4.0 gm/dl (3.4-5.0) 07/16/18 16:32 Globulin 4.0 gm/dl (2.5-4.0) 07/16/18 16:32 Albumin/Globulin Ratio 1.0 (0.9-2) 07/16/18 16:32 Lipase 209 U/L (73-393) 07/16/18 16:32 Diagnostic Findings Chest x-ray: No active disease EKG as per my interpretation : Rate 65, NSR, T wave flattening inferior, anterior leads
[2018-07-16] MEDS ORDERED: MoRPHine SULFATE 4 MG/ML 1 ML CARP\\VIAL IV PRN (21:14)
[2018-07-16] MEDS ORDERED: NITROGLYCERIN SL 0.4 MG/TAB TAB SL PRN (21:14)
[2018-07-16] MEDS ORDERED: ACETAMINOPHEN 325 MG TAB PO PRN (21:14)
[2018-07-16] MEDS ORDERED: LORazepam 0.25 MG/0.5 ML VIAL IV PRN (21:14)
[2018-07-16] MEDS ORDERED: PROCHLORPERAZINE 5 MG in SYRINGE 4 ML IV PRN (21:14)
[2018-07-16] MEDS ORDERED: TRAMADOL HCL 50 MG TABLET PO PRN (21:14)
[2018-07-16] MEDS ORDERED: MIRTAZAPINE TAB 15 MG TAB PO SCH (21:14)
[2018-07-17] MEDS ORDERED: NSS + 20MEQ KCL 20 MEQ/1,000 ML BAG IV SCH
[2018-07-17 05:26] LABS: Basophils # (auto) 0.02 K/uL (0-0.2); Basophils % (auto) 0.4 %; Eosinophils # (auto) 0.12 K/uL (0-0.5); Eosinophils % (auto) 2.3 %; Hematocrit (blood only) 34.4 % (37-47); Hemoglobin 11.7 g/dL (12.0-16.0); Lymphocytes % (auto) 24.5 %; Mean Corpuscular Volume 96.6 fL (80-100); Mean Platelet Volume 10.1 fL (7.4-10.4); Monocytes % (auto) 9.4 %; Neutrophils # (auto) 3.37 K/uL (1.4-6.5); Neutrophils % (auto) 63.4 %; Platelet Count 273 K/uL (130-400); RDW Coefficient of Variation 12.5 % (11.5-14.5); RDW Standard Deviation 43.9 fL (36.4-46.3); Red Blood Count 3.56 M/uL (4.2-5.4); White Blood Count 5.31 K/uL (4.8-10.8)
[2018-07-17 06:29] LABS: Partial Thromboplastin Time 25.9 Seconds (21.0-31.0)
[2018-07-17] MEDS ORDERED: LEVOTHYROXINE SODIUM 88 MCG TABLET PO SCH (06:30)
[2018-07-17 07:34] LABS: Prothrombin Time 10.7 Seconds (9.0-12.0)
[2018-07-17] MEDS: FERROUS SULFATE 325 MG TAB PO SCH ×2 (08:21→09:42)
[2018-07-17] MEDS: ASPIRIN 81 MG ECTAB PO SCH ×2 (08:21→09:42)
[2018-07-17] MEDS: FEXOFENADINE HCL 180 MG TAB PO SCH ×2 (08:21→09:42)
[2018-07-17] MEDS: LISINOPRIL 10 MG TAB PO SCH ×2 (08:21→09:42)
[2018-07-17] MEDS ORDERED: ENOXAPARIN INJ 40 MG/0.4 ML SYR SQ SCH (09:00)
[2018-07-17] MEDS ORDERED: MIDAZOLAM HCL 1 MG/ML 2ML VIAL ONE (10:07)
[2018-07-17] MEDS ORDERED: NITROGLYCERIN/D5W 100MCG/ML 20ML SYR ONE (10:07)
[2018-07-17] MEDS ORDERED: fentaNYL citrate 100 MCG/2 ML VIAL ONE (10:07)
[2018-07-17] MEDS ORDERED: NiCARDipine HCL INJ 2.5 MG/ML 10 ML AMP ONE (10:07)
[2018-07-17] MEDS ORDERED: HEPARIN (PORCINE) 1000 UNIT/ML 10 ML (CATH LAB USE ONLY) ONE (10:07)
[2018-07-17] MEDS ORDERED: ASPIRIN 81 MG CHEW ONE (10:11)
[2018-07-17] MEDS ORDERED: ASPIRIN 81 MG CHEW PO SCH (10:15)
--- NOTE | 2018-07-17 10:53 | Cardiology Consultation ---
Date of Consultation July 17, 2018 Assessment & Plan (1) Chest pain, precordial: (2) Lupus: The patient presents with 4 days of waxing waning shortness of breath and chest discomfort. She had 2 EKGs performed yesterday, 1 of them revealed a transient T wave inversion in lead V3 without significant repolarization abnormality otherwise. Repeat EKG this morning was normal, and cardiac enzymes have been negative x3. D-dimer screen was negative. She does not describe a pleuritic component to her chest discomfort, and she notes chronic sinus symptoms due to allergies without acute respiratory tract illness. She underwent an exercise stress echocardiogram. Her resting echocardiogram revealed normal resting wall motion and normal LVEF. Mild tricuspid regurgitation was present without findings to suggest pulmonary hypertension. The patient exercised into stage III. Her EKG response to exercise was without acute change, and her post exercise images revealed appropriate augmentation of the left ventricle. The patient however developed equivocal mild ST segment depression in her inferior and lateral leads in the post exercise recovery interval that correlated with a subjective complaint of "chest pressure ". I would describe her stress test results as being equivocal at this point. But I am concerned that I do not have an alternative explanation for her symptoms, and I think the most prudent thing would be to proceed with coronary angiography for definitive assessment. The patient was agreeable to this approach. I am going to arrange this with interventional cardiology. History of Present Illness Attending Physician: Erasmo Lawson MD History of Present Illness Prema Jones is a 47 year old female seen in cardiology consultation per the request of Dr Lawson for the evaluation of chest discomfort with equivocal stress echocardiogram. The patient has an apparent past medical history of systemic lupus erythematosus with history of Raynaud's phenomenon and chronic anemia. She had most recently been seen by rheumatology in 2002, and she reports to me that her disease has been stable and in remission and that she has not been on any chronic medications for it for years. 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 She was able to perform this activity without perceived limitation until about 4 days ago when she started having exertional shortness of breath accommodated chest discomfort. An EKG performed in the emergency department yesterday revealed equivocal T wave inversion in lead V3, however her EKG on repeat this morning was normal and cardiac enzymes were negative x3. Allergies Allergy/AdvReac Type Severity Reaction Status Date / Time cephalexin [From Keflex] Allergy Unknown Unknown Verified 07/16/18 17:29 Cephalosporins Allergy Unknown Unknown Verified 07/16/18 17:29 codeine Allergy Unknown Unknown Verified 07/16/18 17:29 Penicillins Allergy Unknown Unknown Verified 07/16/18 17:29 Sulfa (Sulfonamide Allergy Unknown Unknown Verified 07/16/18 17:29 Antibiotics) sulfamethoxazole Allergy Unknown Unknown Verified 07/16/18 17:29 Home Medications Home Medications Medication Instructions Recorded Confirmed Type albuterol sulfate [ProAir HFA] 2 puff INHALATION DIRECTED PRN 07/16/18 07/16/18 History aspirin 81 mg PO DAILY 07/16/18 07/16/18 History ferrous sulfate 325 mg PO DAILY 07/16/18 07/16/18 History fexofenadine [Debra Allergy] 180 mg PO DAILY 07/16/18 07/16/18 History hydrochlorothiazide 12.5 mg PO DAILY 07/16/18 07/16/18 History levothyroxine 88 mcg PO QAM 07/16/18 07/16/18 History lisinopril 10 mg PO DAILY 07/16/18 07/16/18 History mirtazapine 30 mg PO HS 07/16/18 07/16/18 History potassium chloride 10 meq PO DAILY 07/16/18 07/16/18 History Patient History Medical History Hypertension Lupus Social History Preferred Language: Latvian Communication Ability: Effective Graduate 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 No recent respiratory symptoms. Physical Exam Vital Signs (Past 24 Hours): Last Vital Signs Temp 36.6 C 07/17/18 07:26 Pulse 80 07/17/18 08:00 Resp 18 07/17/18 07:26 BP 113/74 07/17/18 07:26 Pulse Ox 98 07/17/18 07:26 Physical Exam: General: no acute distress and stated age, thin Eyes: conjunctiva are pink and non-injected, sclera clear Neck: normal jugular venous pulse, no hepatojugular reflux Chest: normal shape and normal respiratory effort Lungs: clear to auscultation and percussion Cardiac Exam: - regular heart sounds, no murmurs, rubs, or gallops, no jugular venous distention Abdomen: abdomen soft, non-tender, no abnormal masses and no hepatosplenomegaly Musculoskeletal: mild gait abnormality with internal rotation of both of her feet Extremities: no edema and no cyanosis Neuro:awake, coversant, follows commands, no focal motor deficits Results & Data Laboratory Results Cholesterol panel as outpatient 04/17/18: Total cholesterol 174, HDL 57, LDL 81, triglyceride 180 07/16/18 07/17/18 Range/Units 16:32 04:00 AST 19 (15-37) U/L Troponin I < 0.015 (0-0.045) ng/ml Coagulation 07/16/18 07/17/18 07/17/18 Range/Units 16:32 04:00 04:00 PT 10.7 (9.0-12.0) Seconds APTT 25.4 25.9 (21.0-31.0) Seconds CBC 07/16/18 07/17/18 Range/Units 16:32 04:00 WBC 6.35 5.31 (4.8-10.8) K/uL RBC 3.85 L 3.56 L (4.2-5.4) M/uL Hgb 12.4 11.7 L (12.0-16.0) g/dL Hct 36.6 L 34.4 L (37-47) % Plt Count 317 273 (130-400) K/uL Neut # (Auto) 4.35 3.37 (1.4-6.5) K/uL Lymph # (Auto) 1.43 1.30 (1.2-3.4) K/uL Whitman # (Auto) 0.45 0.50 (0.11-0.59) K/uL Eos # (Auto) 0.10 0.12 (0-0.5) K/uL Baso # (Auto) 0.01 0.02 (0-0.2) K/uL Comprehensive Metabolic Panel 07/16/18 Range/Units 16:32 Sodium 137 (136-145) mmol/L Potassium 3.9 (3.5-5.1) mmol/L Chloride 104 (98-107) mmol/L Carbon Dioxide 27 (21-32) mmol/L BUN 18 (7-18) mg/dl Creatinine 0.76 (0.6-1.2) mg/dl Glucose 95 (70-99) mg/dl Calcium 9.6 (8.5-10.1) mg/dl AST 19 (15-37) U/L ALT 20 (12-78) U/L Alkaline Phosphatase 66 (45-117) U/L Total Protein 8.0 (6.4-8.2) gm/dl Albumin 4.0 (3.4-5.0) gm/dl Intake and Output 07/16/18 07/17/18 07/17/18 22:59 06:59 14:59 Other: Other Intake Source npo Weight 61.008 kg 61.9 kg
--- NOTE | 2018-07-17 11:02 | Cardiac Catheterization ---
Cardiac Cath Procedure Full Procedure Date July 17, 2018 Pre-Procedure Diagnosis Pre-Procedure Diagnosis: Positive Stress Test AUC Score AUC Score: 7 Post-Procedure Diagnosis Post-Procedure Diagnosis: Mild CAD and Normal Intracardiac Pressures Procedure(s) Performed Procedure(s) Performed: Coronary Angiography and Left Heart Cath Front Worker Josh Diop MD Bench Press Operator(s) Sally Cai Estimated Blood Loss Estimated Blood Loss: 5 Medication(s) Medication(s): Fentanyl, Heparin, Lidocaine 1%, Nicardipine, Nitroglycerin and Versed Summary of Findings Indication: Abnormal stress test, exertional chest pain Access: 6 Fr slender right radial artery Catheters: [place], pigtail Findings: LM -angiographically normal LAD -moderate caliber vessel, mid segment luminal irregularities, distal vessel wraps around the apex. Gives off moderate caliber diagonal from the mid segment with mild proximal disease. Circumflex -moderate caliber vessel, angiographically normal RCA -dominant, moderate caliber, mid and distal segment luminal irregularities, 30-40% proximal small right PDA. LVEDP -2 Arterial Closure: TR band Summary: 1. Mild nonobstructive coronary artery disease -30-40% proximal small right PDA Mid LAD, diagonal luminal irregularities 2. Normal intracardiac filling pressure Recommendations: Continued ASCVD risk factor modification Further evaluation for noncardiac causes of exertional shortness of breath/chest pain per Dr. Donis Hemodynamics Rest Ao:: 140/81/107 Final Ao: 133/70/99 LV: 135/2 Recommendations Recommendations: Medical Therapy and/or Counseling Specimens Specimens: None Radiation Exposure (mGy) 468 Contrast (mls) 35 Fluids (cc crystalloids) Fluids (cc crystalloids): 65 Drains Drains: none Anesthesia moderate Procedural Complication(s) None Disposition PCU ACC Data: [place] Cardiac Status Clinical evaluation leading to the procedure CAD Presenation: Unstable angina Anginal Classification: CCS III Heart Failure: No Cardiogenic Shock within 24 Hours: No Cardiac Arrest within 24 Hours: No Imaging Studies Past 6 Months: Yes Stress Studies Past 6 Months: Yes Stress Echocardiogram: Yes - Positive Diagnostic Physicians Name: Josh Diop MD Status: Elective Closure Device Percutaneous Entry Location: Radial Closure Device: Radial Band Recommendations: Medical Therapy and/or Counseling Intraprocedure Events Significant Disection: No Perforation: No
--- NOTE | 2018-07-17 11:02 | Post Anesthesia Assessment ---
Date of Service July 17, 2018 Post Sedation Assessment Vital Signs Temp Pulse Pulse Resp BP BP Pulse Ox 07/17/18 08:00 80 07/17/18 07:26 36.6 C 67 18 113/74 98 07/17/18 03:31 36.6 C 62 18 115/77 97 07/16/18 23:20 80 07/16/18 23:08 36.6 C 72 20 122/83 96 07/16/18 21:20 36.6 C 74 18 142/94 H 96 07/16/18 20:40 64 14 97 07/16/18 20:31 66 16 96 07/16/18 20:30 69 14 118/81 97 07/16/18 20:20 66 18 97 07/16/18 20:10 73 17 97 07/16/18 20:02 65 20 97 07/16/18 20:01 67 18 149/90 H 98 07/16/18 20:00 68 17 156/126 H 97 07/16/18 19:50 67 14 97 07/16/18 19:40 72 16 98 07/16/18 19:31 62 16 98 07/16/18 19:30 62 13 139/98 98 07/16/18 19:20 70 19 95 07/16/18 19:10 65 17 100 07/16/18 19:01 67 15 97 07/16/18 19:00 66 19 119/81 95 07/16/18 18:50 66 15 98 07/16/18 18:40 68 20 96 07/16/18 18:31 69 13 98 07/16/18 18:30 67 17 122/83 98 07/16/18 18:20 67 12 07/16/18 18:10 68 18 97 07/16/18 18:01 70 17 98 07/16/18 18:00 65 23 113/87 98 07/16/18 17:50 68 16 91 07/16/18 17:40 68 17 07/16/18 17:31 69 17 98 07/16/18 17:30 67 16 123/87 96 07/16/18 17:20 66 15 99 07/16/18 17:10 73 16 97 07/16/18 17:01 69 15 98 07/16/18 17:00 68 16 124/94 98 07/16/18 16:50 70 16 99 07/16/18 16:40 70 16 97 07/16/18 16:34 66 16 139/100 98 07/16/18 16:32 68 18 100 07/16/18 16:21 97 07/16/18 16:18 69 16 137/94 100 07/16/18 14:33 36.9 C 81 18 147/93 H 98 Recovery Score Activity: Moves 4 extremities Respiration: Deep Breath/Cough Circulation: +/-20% PreAnes Value Consciousness: Fully Awake Oxygen Saturation: O2 needed for >90% Discharge Sedation Level of Care: Fast Track Phase II Post Sedation Plan On clinical assessment, the patient appears to have tolerated the sedation without complications. Patient is recovering as anticipated. Patient will continue to be monitored by nursing and may be discharged when sedation discharge criteria are met per below protocol. Upon Completions of procedure and additional 15 minutes continue every 5 minute vital signs and the P.A.R. score; then discharge to a Phase I or Fast Track to Phase II per the following guidelines: * Discharge Patient to appropriate Phase II area if PAR is 8 or greater or return to pre- procedure baseline. The post - procedure orders will be as directed. * If PAR score is less than 8 or not return to pre-procedure baseline then patient will follow Phase I monitoring till PAR is reached for Phase II. The Phase I may be done in procedure room or may call to secure a Phase I area. * If naloxone or flumazenil are used for reversal, hold in Phase I for continued monitoring from when last reversal dose was given for a minimum of 60 minutes or longer pending the nurse and/or physician discretion of patient condition before discharge to Phase II. Please call the Sedation Physician to re-evaluate and complete post-note for discharge to Phase II area. Do NOT discharge from procedure sedation or Phase 1 until post- sedation evaluation note is complete by procedure /sedation MD Sedation Discharge Instructions to be given to the patient at discharge to home.
--- NOTE | 2018-07-17 11:02 | Cardiology Consultation ---
Date of Consultation July 17, 2018 Assessment & Plan (1) Abnormal cardiovascular stress test: 2. Exertional chest pain 3. SLE 4. Hypertension 5. Mild anemia Patient here with new exertional chest pain over the last for 5 days. Stress test today remarkable for EKG changes, chest pain in recovery. In the setting of cardiac risk factors agree with proceeding with cardiac catheterization. Discussed procedure with patient including risks, benefits, alternatives and she is willing to proceed. Plan performed via right radial artery. History of Present Illness Attending Physician: Erasmo Lawson MD History of Present Illness Ms. Jones is a very pleasant 47-year-old woman with a history of lupus not on therapy, mild stable anemia, hypertension, asthma who was admitted with new exertional chest pain over the last for 5 days. Presenting EKG, cardiac enzymes unremarkable. Underwent exercise stress echocardiogram today. Patient exercised into stage III without symptoms but on recovery developed chest pain with reported EKG changes. Chest pain reminiscent of recent exertional chest pain. Cardiac care per Dr. Donis. Interventional cardiology consulted for cardiac catheterization. No prior cardiac history. No prior cardiac catheterization. Allergies Allergy/AdvReac Type Severity Reaction Status Date / Time cephalexin [From Keflex] Allergy Unknown Unknown Verified 07/16/18 17:29 Cephalosporins Allergy Unknown Unknown Verified 07/16/18 17:29 codeine Allergy Unknown Unknown Verified 07/16/18 17:29 Penicillins Allergy Unknown Unknown Verified 07/16/18 17:29 Sulfa (Sulfonamide Allergy Unknown Unknown Verified 07/16/18 17:29 Antibiotics) sulfamethoxazole Allergy Unknown Unknown Verified 07/16/18 17:29 Home Medications Home Medications Medication Instructions Recorded Confirmed Type albuterol sulfate [ProAir HFA] 2 puff INHALATION DIRECTED PRN 07/16/18 07/16/18 History aspirin 81 mg PO DAILY 07/16/18 07/16/18 History ferrous sulfate 325 mg PO DAILY 07/16/18 07/16/18 History fexofenadine [Debra Allergy] 180 mg PO DAILY 07/16/18 07/16/18 History hydrochlorothiazide 12.5 mg PO DAILY 07/16/18 07/16/18 History levothyroxine 88 mcg PO QAM 07/16/18 07/16/18 History lisinopril 10 mg PO DAILY 07/16/18 07/16/18 History mirtazapine 30 mg PO HS 07/16/18 07/16/18 History potassium chloride 10 meq PO DAILY 07/16/18 07/16/18 History Patient History Medical History Hypertension Lupus Social History Preferred Language: Tunisian Communication Ability: Effective Credentialing Assistant Required: No Beliefs That Will Affect Care: None Current Living Situation: Spouse Feels Safe at Home: Yes Safety Concerns: Feels Safe At This Time Smoking Status: Never smoker Hx Alcohol Use: Yes Hx Substance Use: No Review of Systems 10 point review of systems was completed and was otherwise negative unless stated in HPI Physical Exam Vital Signs (Past 24 Hours): Last Vital Signs Temp 36.6 C 07/17/18 07:26 Pulse 80 07/17/18 08:00 Resp 18 07/17/18 07:26 BP 113/74 07/17/18 07:26 Pulse Ox 98 07/17/18 07:26 Physical Exam: General: Comfortable, no acute distress Eyes: Sclerae anicteric, extraocular movements intact HENT: Oropharynx clear mucous membranes moist Lungs: Clear to auscultation bilaterally, no rhonchi or wheezes Cardiac: Regular rate and rhythm, no murmurs, rubs or gallops. Vascular: 2+ radial, DP and PT pulses. No varicosities. Abdomen: Soft, nontender, nondistended, positive bowel sounds. Extremities: Well perfused, no peripheral edema Neuro: Nonfocal Psych: Alert orient x3, normal affect and mood
--- NOTE | 2018-07-17 11:02 | Pre Anesthesia Assessment ---
Date of Service July 17, 2018 Pre Sedation Assessment Vital Signs Temp Pulse Pulse Resp BP BP Pulse Ox 07/17/18 08:00 80 07/17/18 07:26 36.6 C 67 18 113/74 98 07/17/18 03:31 36.6 C 62 18 115/77 97 07/16/18 23:20 80 07/16/18 23:08 36.6 C 72 20 122/83 96 07/16/18 21:20 36.6 C 74 18 142/94 H 96 07/16/18 20:40 64 14 97 07/16/18 20:31 66 16 96 07/16/18 20:30 69 14 118/81 97 07/16/18 20:20 66 18 97 07/16/18 20:10 73 17 97 07/16/18 20:02 65 20 97 07/16/18 20:01 67 18 149/90 H 98 07/16/18 20:00 68 17 156/126 H 97 07/16/18 19:50 67 14 97 07/16/18 19:40 72 16 98 07/16/18 19:31 62 16 98 07/16/18 19:30 62 13 139/98 98 07/16/18 19:20 70 19 95 07/16/18 19:10 65 17 100 07/16/18 19:01 67 15 97 07/16/18 19:00 66 19 119/81 95 07/16/18 18:50 66 15 98 07/16/18 18:40 68 20 96 07/16/18 18:31 69 13 98 07/16/18 18:30 67 17 122/83 98 07/16/18 18:20 67 12 07/16/18 18:10 68 18 97 07/16/18 18:01 70 17 98 07/16/18 18:00 65 23 113/87 98 07/16/18 17:50 68 16 91 07/16/18 17:40 68 17 07/16/18 17:31 69 17 98 07/16/18 17:30 67 16 123/87 96 07/16/18 17:20 66 15 99 07/16/18 17:10 73 16 97 07/16/18 17:01 69 15 98 07/16/18 17:00 68 16 124/94 98 07/16/18 16:50 70 16 99 07/16/18 16:40 70 16 97 07/16/18 16:34 66 16 139/100 98 07/16/18 16:32 68 18 100 07/16/18 16:21 97 07/16/18 16:18 69 16 137/94 100 07/16/18 14:33 36.9 C 81 18 147/93 H 98 Cardiovascular RRR, no murmur, no edema Respiratory normal respiratory effort, lungs clear to auscultation Pre-Sedation Airway Assessment Smoking Status: Never smoker Hx Sleep Apnea: No Hx Difficult Intubation: No Short, Thick Neck: No Thyromental Distance: > or= 3.5 Finger Breadths Oral Cavity: + WNL Mallampati Class: III ASA: ASA3 NPO Status Date of Last Intake of Fluids: 07/17/18 Time of Last Intake of Fluids: 08:00 Date of Last Intake of Solid Food: 07/16/18 Time of Last Intake of Solid Foods: 22:00 Procedure Planning Contraindications for Sedation: none Current Medications Reviewed: Yes Notes The planned sedation has been discussed with the patient. Informed Consent was obtained. I have identified the patient, determined the appropriateness of sedation and have assessed the patient immediately prior to the procedure. All medicine(s) and interventions are by my order.
--- NOTE | 2018-07-17 12:42 | Cardiology Progress Note ---
Date of Service July 17, 2018 Cardiac catheterization films reviewed with Dr Diop. The patient was found to have mild nonobstructive coronary artery disease with a 30-40% stenosis of the proximal portion of a small right PDA. Mild luminal irregularities were noted in the LAD and diagonal. I do not think her coronary heart disease is significant enough to explain her symptoms. She does however need ongoing medication therapy moving forward for secondary prevention including aspirin 81 mg daily, and atorvastatin. Her blood pressure and heart rate are somewhat low at baseline at present. I think reasonable to discharge her with ongoing observation for blood pressure, and would have a low threshold for initiating amlodipine as an outpatient in the future. Currently her most recent blood pressure reading was 103/71. Case discussed with Dr Villarreal. Physical Exam Vital Signs (Past 24 Hours): Last Vital Signs Temp 36.5 C 07/17/18 12:15 Pulse 75 07/17/18 12:30 Resp 16 07/17/18 12:30 BP 103/71 07/17/18 12:15 Pulse Ox 98 07/17/18 12:30
[2018-07-17] MEDS ORDERED: ATORVASTATIN 10 MG TAB PO SCH (12:45)
[2018-07-17 13:22] VITALS: O2SAT 96
[2018-07-17 15:11] VITALS: BP 121/79; TEMP 98.1
--- NOTE | 2018-07-17 15:37 | Hospitalist Progress Note ---
Date of Service July 17, 2018 Assessment & Plan (1) Chest pain, precordial: Troponin x3 set negative Stress echo done today was equivocal for excluding ischemia Cardiology was consulted s/p cardiac cath done this morning showed mild nonobstructive coronary artery disease with 30-40% proximal small right PDA Case discussed with Dr. Donis recommended medical management with aspirin and statin OK from cardiology standpoint to discharge home No hematoma noted from the cardiac cath site HTN Continue current BP medications BP stable Lupus Stable DVT px on Lovenox Code Status FULL CODE Disposition Will discharge home today Follow up with your primary care provider Dr. Velazquez (Dr. Stewart's colleague) on 07/22 @ 3:45Pm Subjective Pt was seen and examined Lying in bed with no distress Pt said that she feels fine Currently denies any chest pain, palpitation and SOB Physical Exam Vital Signs (Past 24 Hours): Last Vital Signs Temp 36.7 C 07/17/18 15:10 Pulse 73 07/17/18 15:10 Resp 18 07/17/18 15:10 BP 121/79 07/17/18 15:10 Pulse Ox 96 07/17/18 15:10 Physical Exam: General- No acute distress Head- atraumatic Eyes- PERRL, EOMI, ENT- oropharynx clear Neck- supple, no JVD Lungs- clear to auscultation Heart- regular rhythm; no murmur Abdomen- normal bowel sounds, soft, nontender Extremities- no calf tenderness, no hematoma from right wrist area from the cardiac cath Neuro- alert, oriented x 3; PERRL, EOMI; no facial palsy; no dysarthria Skin- warm & dry
[2018-07-17 16:14] VITALS: PULSE 73
--- NOTE | 2018-07-18 13:37 | Discharge Summary ---
Date of Service July 22, 2018 Admission HPI Per Admitting Provider History obtained from patient, family, and records. Medical history significant for hypertension, SLE, chronic anemia baseline hemoglobin of 11, mood disorder, asthma. 4 days history of substernal heaviness nonradiating usually related to exertion, relieved by rest. Some shortness of breath, no cough symptoms., No weight gain. Patient had relief of chest pain at the ER after be given aspirin. 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
--- NOTE | 2018-07-19 07:56 | Discharge Summary ---
Date of Service July 19, 2018 Admission HPI Per Admitting Provider History obtained from patient, family, and records. Medical history significant for hypertension, SLE, chronic anemia baseline hemoglobin of 11, mood disorder, asthma. 4 days history of substernal heaviness nonradiating usually related to exertion, relieved by rest. Some shortness of breath, no cough symptoms., No weight gain. Patient had relief of chest pain at the ER after be given aspirin. 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 Admission Exam Per Admitting Provider GENERAL: Comfortable, slightly anxious, no respiratory distress SKIN: Pallor, warm HEENT: Pale palpebral conjunctivae, no ptosis, dry buccal mucosa NECK : Supple, no tenderness CHEST : CTA, no tenderness HEART : RRR, no obvious murmurs ABDOMEN: Some distention, nontender EXTREMITIES : No LE swelling/tenderness, no other conspicuous deformities noted NEUROLOGIC : Coherent, no facial asymmetry, no other gross focality Principal Diagnosis Chest pain Discharge Exam GENERAL: Comfortable, slightly anxious, no respiratory distress SKIN: Pallor, warm HEENT: Pale palpebral conjunctivae, no ptosis, dry buccal mucosa NECK : Supple, no tenderness CHEST : CTA, no tenderness HEART : RRR, no obvious murmurs ABDOMEN: Some distention, nontender EXTREMITIES : No LE swelling/tenderness, no other conspicuous deformities noted NEUROLOGIC : Coherent, no facial asymmetry, no other gross focality Discharge Data Allergies Allergy/AdvReac Type Severity Reaction Status Date / Time cephalexin [From Keflex] Allergy Unknown Unknown Verified 07/16/18 17:29 Cephalosporins Allergy Unknown Unknown Verified 07/16/18 17:29 codeine Allergy Unknown Unknown Verified 07/16/18 17:29 Penicillins Allergy Unknown Unknown Verified 07/16/18 17:29 Sulfa (Sulfonamide Allergy Unknown Unknown Verified 07/16/18 17:29 Antibiotics) sulfamethoxazole Allergy Unknown Unknown Verified 07/16/18 17:29 Consultations 07/16/18 19:27 ED Decision to Admit Stat 07/17/18 09:46 Consult Cardiology Routine 07/17/18 09:56 Consult Cardiac Catheterization Routine Procedures Performed Operation Date: 07/17/18 11:00 Actual Procedures p Cath, Left with Cors and Vent - Jerad Diop MD s Cineradiography w/Routine Exam(Not Applicable) - Jerad Diop MD Ordered Studies 07/17/18 10:14 CL Cath Imgs for PACS use only Routine Hospital Course (1) Chest pain, precordial: Troponin x3 set negative Stress echo done today was equivocal for excluding ischemia Cardiology was consulted s/p cardiac cath done this morning showed mild nonobstructive coronary artery disease with 30-40% proximal small right PDA Case discussed with Dr. Donis recommended medical management with aspirin and statin OK from cardiology standpoint to discharge home No hematoma noted from the cardiac cath site HTN Continue current BP medications BP stable Lupus Stable DVT px on Lovenox Code Status FULL CODE Disposition Will discharge home today Follow up with your primary care provider Dr. Velazquez (Dr. Stewart's colleague) on 07/22 @ 3:45Pm Total Time Total Time Spent Total Time Spent (In Minutes): 35 minutes Total Time Includes: Examination of the Patient, Discharge Planning, Medication Reconciliation, Communication With Other Providers and Other Discharge Plan Discharge Items Patient Disposition: Home - Self-Care Reason For Visit: CHEST PAIN Discharge Diagnosis: Chest pain Discharge Goals: Decrease discomfort, Improve disease control, Improve function and Increase independence Activity: As commented below Non-emergency contact: Primary Care Provider Call non-emergency contact if: you have any medication questions, your symptoms worsen, your pain is not controlled, your pain is concerning for you, your temperature is above 101 and your wound has increased redness Diet: Heart Healthy Addtl Provider Instructions: Follow up with your primary care provider Dr. Velazquez (Dr. Stewart's colleague) on 07/22 @ 3:45 PM Continue atorvastatin and aspirin 81mg daily Keep the area for the cardiac cath clean and dry to avoid any infection Do not use creams, lotions or ointment on the wound site Do not take a bath, tub soak, go in a Jacuzzi, or swim in a pool or [place] for one week after the procedure. Do not participate in strenuous activities for 3 days after the procedure. Gradually increase your activities until you reach your normal activity level within two days after the procedure. Avoid heavy lifting (more than 10 pounds) and pushing or pulling heavy objects for the first 4-5 days after the procedure. Prescriptions: New atorvastatin 10 mg Tablet 10 mg PO QAM 30 Days Qty: 30 RF: 0 Continued fexofenadine [Debra Allergy] 180 mg Tablet 180 mg PO DAILY RF: 0 aspirin 81 mg Tablet,Delayed Release (Dr/Ec) 81 mg PO DAILY RF: 0 levothyroxine 88 mcg tablet 88 mcg PO QAM RF: 0 mirtazapine 30 mg tablet 30 mg PO HS RF: 0 lisinopril 10 mg tablet 10 mg PO DAILY RF: 0 albuterol sulfate 90 mcg/actuation HFA aerosol inhaler 2 puff Inhalation DIRECTED PRN (Reason: Shortness Of Breath Or Wheezing) RF: 0 potassium chloride 10 mEq tablet,ER particles/crystals 10 meq PO DAILY RF: 0 hydrochlorothiazide 12.5 mg tablet 12.5 mg PO DAILY RF: 0 ferrous sulfate 325 mg (65 mg iron) Tablet 325 mg PO DAILY RF: 0 Stand-Alone Forms: [employer], Work/School Release (Inpt) Kr[employer]phan[employer]/Other Patient Handouts: Atorvastatin Calcium Oral tablet, ED Cardiac Cath Post Bleed Hematom Discharge Orders: Discharge Order (Routine); Ordered 07/17/18 Ordered By: Erasmo Lawson Admission Data Admit Date/Time: 07/16/18 20:16 Attending Provider: Erasmo Lawson Admit Provider: Ismael Duke Primary Care Provider: Vimal Stewart Other Providers: Ismael Duke ; Дмитрий Donis ; Jerad Diop Service: Telemetry Other Interventions: Discharge Summary Assessment (RN) Last Done: 07/17/18 16:11 DC Date/Time DO NOT enter until pt leaves facility: 07/17/18 16:57
== END 2018-07-17 16:57 | disposition home or self-care (01) ==
LOC: 2N 14:21 → ED 14:21 → 2N 20:52 → 2S 07-17 11:52